=== PATIENT | male | born 1945 | race Caucasian/White ===

== ENCOUNTER 2021-07-02 18:03 | Inpatient (IN) | payer MEDICARE, OTHER ==
[~2021-07-02] VITALS: Ht 182.9 cm; Wt 70.3 kg
[2021-07-02] MEDS ORDERED: ALBUTEROL SULFATE 2.5 MG/3 ML NEBU NEB ONE (18:15)
[2021-07-02] MEDS ORDERED: methylPREDNISolone SOD SUCC 125 MG/2 ML VIAL IV ONE (18:15)
[2021-07-02] MEDS ORDERED: IV NORMAL SALINE 1000 ML BAG IV ONE (18:15)
--- NOTE | 2021-07-02 18:22 | NUR ---
PT CAN NOT REMEMBER HIS HOME MEDICATION NAMES AND DOSAGES. HIS RELATIVES ARE GOING TO BRING MEDICATION LIST LATER.
[2021-07-02] MEDS ORDERED: ALBUTEROL SULFATE 2.5 MG/3 ML NEBU ONE (18:26)
[2021-07-02] MEDS ORDERED: methylPREDNISolone SOD SUCC 125 MG/2 ML VIAL ONE (18:37)
[2021-07-02 19:01] LABS: HEMATOCRIT 31.9 % (36.7-47.1); MEAN CORPUSCULAR VOLUME 87.4 fL (73.0-96.2); PLATELET COUNT (AUTO) 372 K/uL (152-348)
[2021-07-02 19:21] LABS: ALANINE AMINOTRANSFERASE 40 U/L (16-63); ALKALINE PHOSPHATASE 92 U/L (50-136); ASPARTATE AMINOTRANSFERASE 17 U/L (15-37); BILIRUBIN,TOTAL 0.4 mg/dL (0.2-1.0); CARBON DIOXIDE 23 mmol/L (21-32); CHLORIDE 95 mmol/L (98-107); CREATININE 2.8 mg/dL (0.6-1.3); POTASSIUM 4.7 mmol/L (3.5-5.1); TOTAL PROTEIN, SERUM 7.5 g/dL (6.4-8.2)
--- NOTE | 2021-07-02 19:24 | NUR ---
Patient states he does not want prednisone because it makes his blodd sugar go to the 600's. I notified Dr Park and Solu medrol was cancelled
[2021-07-02 19:28] LABS: BILIRUBIN,DIRECT 0.1 mg/dL (0.0-0.2)
[2021-07-02 19:29] LABS: GLUCOSE 380 mg/dL (74-106); UREA NITROGEN, BLOOD 106 mg/dL (7-18)
[2021-07-02] MEDS ORDERED: MIDAZOLAM HCL 2 MG/2 ML VIAL IV ONE (20:15)
[2021-07-02] MEDS ORDERED: FENTANYL CITRATE 100 MCG/2 ML AMPUL IV ONE (20:15)
[2021-07-02] MEDS ORDERED: MIDAZOLAM HCL 5 MG/ML VIAL ONE (20:52)
[2021-07-02] MEDS ORDERED: FENTANYL CITRATE 100 MCG/2 ML AMPUL ONE (20:53)
[2021-07-02] MEDS ORDERED: LIDOCAINE HCL 1% 20 ML VIAL ONE (22:50)
--- NOTE | 2021-07-02 23:00 | NUR ---
Patient consented for chest tube insertion by Dr. Park. , RN, & RT Cameron at bedside. Patient was medicated with 50mcg fentanyl IV. First attempt at chest tube insertion w/ Alvin-Close unsuccessful by MD. Willam Nguyen looking for another TruClose chest tube. in the meantime, dressing placed on incision. patient vitals are stable.
--- NOTE | 2021-07-03 00:14 | NUR ---
ARIADNA BAE, JACOB MCCANN.
--- NOTE | 2021-07-03 00:15 | NUR ---
Patient was transferred to Room 2A. Patient consented for chest tube insertion again with TruClose. patient was given 25mcg fentanyl at 2354. , RN, & RT Cameron at bedside. xray was done for post chest tube insertion. pending results.
--- NOTE | 2021-07-03 00:20 | NUR ---
Pt. admitted to Telemetry, under care of Desiree De La Torre. Dx: Pneumothorax Belongs List completed
[2021-07-03] MEDS ORDERED: ACETAMINOPHEN 325 MG TABLET PO PRN ×2 (00:30→08:45)
[2021-07-03] MEDS ORDERED: CEFTRIAXONE 1 G in IV DEXTROSE 5% 50 ML IV ONE (00:30)
[2021-07-03] MEDS ORDERED: AZITHROMYCIN IV 500 MG in IV DEXTROSE 5% 250 ML IV ONE (00:30)
[2021-07-03] MEDS ORDERED: MAGNESIUM HYDROXIDE 30 ML LIQUID UDC PO PRN (00:30)
[2021-07-03] MEDS ORDERED: Z GUARD REMEDY PASTE 57 GM TUBE TOP PRN (00:30)
[2021-07-03] MEDS ORDERED: CEFTRIAXONE /D5W 50ML IVPB **ER PYXIS IV ONE (00:44)
[2021-07-03] MEDS ORDERED: FENTANYL CITRATE 100 MCG/2 ML AMPUL IV ONE ×5 (00:45→06:15)
--- NOTE | 2021-07-03 00:50 | NUR ---
Patient to have repeat chest xray per Dr. Park in 45 min
[2021-07-03] MEDS ORDERED: AZITHROMYCIN 500MG/ D5W 250ML IVPB **ER PYXIS ONLY IV ONE (01:13)
--- NOTE | 2021-07-03 02:41 | NUR ---
Patient went down to radiology dept for CT scan. hold off transfer to inpatient unit at this time per Dr. Park.
--- NOTE | 2021-07-03 03:45 | NUR ---
per Dr. Park, CT results came back. & patient will need chest tube insertion again w/water seal. patient consented. vitals are stable.
[2021-07-03] MEDS ORDERED: MIDAZOLAM HCL 2 MG/2 ML VIAL IV ONE ×2 (04:00→06:00)
[2021-07-03] MEDS ORDERED: MIDAZOLAM HCL 5 MG/ML VIAL ONE (04:47)
[2021-07-03] MEDS ORDERED: FENTANYL CITRATE 100 MCG/2 ML AMPUL ONE (04:47)
[2021-07-03] MEDS ORDERED: methylPREDNISolone SOD SUCC 40 MG/ML VIAL IV SCH ×2 (06:00→14:00)
--- NOTE | 2021-07-03 06:07 | NUR ---
chest tube inserted by Dr. Park. patient tolerating well. vitals are stable. chest xray done again
--- NOTE | 2021-07-03 06:21 | NUR ---
Dr. Park spoke with [facility] regarding patient update. Patient to be admitted to [facility]. Called Dr. Tabares (on-call thoracic surgeon) on [phone] Park request pending call back.
--- NOTE | 2021-07-03 06:33 | NUR ---
CALLED [facility]OR[facility] OFFICE AT [phone], NO ONE ANSWERED. LEFT VOICE MESSAGE.
--- NOTE | 2021-07-03 06:34 | NUR ---
Per house sup. report to be given after change of shift
--- NOTE | 2021-07-03 06:44 | NUR ---
[facility] THORACIC SURGEON CALLED BACK
--- NOTE | 2021-07-03 07:03 | NUR ---
Desiree De La Torre called. Stated that she s/w Dr Tabares/Cardiothoracic surgeon who is unable to follow patient today. Instead she paged/left vm for Dr Santana/IR. Instructed to ask Nursing Sup for assistance in contacting AM IR team. S/w nursing monomer recovery supervisor and relayed message.
--- NOTE | 2021-07-03 07:29 | NUR ---
Paged Dr Lilly and connected call to Dr. Park.
[2021-07-03] MEDS ORDERED: MORPHINE SULFATE 2 MG/1 ML DISP.SYRIN ONE (07:36)
[2021-07-03] MEDS ORDERED: MORPHINE SULFATE 2 MG/1 ML DISP.SYRIN IV ONE ×2 (07:45→08:15)
--- NOTE | 2021-07-03 08:11 | NUR ---
VSS. Pt states feeling more comfortable after pain medication. No adverse event. Pt is alert and responsive.
--- NOTE | 2021-07-03 08:23 | NUR ---
Deleted duplicate order for Morphine 2mg IV.
[2021-07-03] MEDS: BLOOD SUGAR DIAGNOSTIC 1 EACH STRIP VI SCH ×4 (08:32→21:06)
[2021-07-03] MEDS ORDERED: DEXTROSE 50% 50 ML DISP.SYRIN IV PRN (08:45)
[2021-07-03] MEDS ORDERED: NORMAL SALINE IV ONE ×2 (08:45→09:00)
[2021-07-03] MEDS ORDERED: ONDANSETRON 4 MG/2 ML VIAL IV PRN ×2 (08:45→10:00)
[2021-07-03] MEDS ORDERED: INSULIN REGULAR, HUMAN 300 UNIT/3 ML VIAL IV ONE (08:45)
[2021-07-03] MEDS ORDERED: INSULIN REGULAR IV ONE ×2 (08:45→09:00)
[2021-07-03] MEDS ORDERED: HUMAN IV ONE ×2 (08:45→09:00)
[2021-07-03] MEDS ORDERED: INSULIN REGULAR, HUMAN 300 UNIT/3 ML VIAL ONE (08:47)
--- NOTE | 2021-07-03 08:48 | NUR ---
Report given to ADRIANNA Frazier. Pt will be transfered to 3rd floor [facility].
[2021-07-03 09:18] LABS: ALANINE AMINOTRANSFERASE 34 U/L (16-63); ALKALINE PHOSPHATASE 75 U/L (50-136); ASPARTATE AMINOTRANSFERASE 14 U/L (15-37); BILIRUBIN,TOTAL 0.3 mg/dL (0.2-1.0); CARBON DIOXIDE 25 mmol/L (21-32); CHLORIDE 102 mmol/L (98-107); CREATININE 2.5 mg/dL (0.6-1.3); POTASSIUM 4.7 mmol/L (3.5-5.1); TOTAL PROTEIN, SERUM 6.8 g/dL (6.4-8.2)
[2021-07-03 09:20] LABS: HEMATOCRIT 27.8 % (36.7-47.1); MEAN CORPUSCULAR HEMOGLOBIN 29.5 uug (23.8-33.4); MEAN CORPUSCULAR VOLUME 87.5 fL (73.0-96.2); PLATELET COUNT (AUTO) 350 K/uL (152-348)
--- NOTE | 2021-07-03 09:20 | NUR ---
Pt transported to 3rd floor via gurney in stable condition accompanied by RT. Hand-off at bedside to Freddie.
--- NOTE | 2021-07-03 09:30 | NUR ---
Received this 76 yo male from ER per ellis with the chief complaint of shortness of breath, diagnosis of pneumothorax. Transferred to bed comfortably. O2 at 3L/NC with o2 sat of 87%. Chest tube intact with bloody drainage, attached to suction but no bubbling noted. Seen and examined and checked chest tube by Dr. Lilly. Scheduled for CT guided thoracentesis, pigtail insertion, consent signed. Placed on NPO.
[2021-07-03 09:32] LABS: GLUCOSE 387 mg/dL (74-106); UREA NITROGEN, BLOOD 91 mg/dL (7-18)
[2021-07-03] MEDS ORDERED: levoFLOXacin 500 MG/D5W 500 MG in PREMIXED 1 EACH IV ONE (11:00)
[2021-07-03] MEDS: ALBUTEROL SULFATE 2.5 MG/3 ML NEBU NEB SCH ×3 (11:44→20:01)
[2021-07-03] MEDS: IPRATROPIUM BROMIDE 0.5 MG/2.5 ML NEBU NEB SCH ×3 (11:44→20:01)
[2021-07-03] MEDS ORDERED: NALOXONE 2 MG/2 ML SYRINGE IV PRN (11:45)
[2021-07-03] MEDS ORDERED: FENTANYL CITRATE 250 MCG/5 ML AMPUL IV PRN (11:45)
[2021-07-03] MEDS ORDERED: MIDAZOLAM HCL 10 MG/2 ML VIAL IV PRN (11:45)
[2021-07-03] MEDS: PANTOPRAZOLE SODIUM 40 MG VIAL IV SCH (11:48)
[2021-07-03] MEDS: MORPHINE SULFATE 2 MG/1 ML DISP.SYRIN IV PRN (11:49)
[2021-07-03] MEDS: INSULIN REGULAR, HUMAN 300 UNIT/3 ML VIAL SQ PRN ×2 (11:50→17:06)
[2021-07-03 12:00] VITALS: BP 124/47
[2021-07-03 13:54] LABS: CHOLESTEROL 123 mg/dL (<200); HDL CHOLESTEROL 38 mg/dL (40-60); TRIGLYCERIDES 132 MG/DL (30-150)
--- NOTE | 2021-07-03 15:00 | NUR ---
To radiology by bed for CT guided thoracentesis, possible pigtail insertion.
[2021-07-03] MEDS ORDERED: LIDOCAINE HCL 1% 20 ML VIAL ONE (15:03)
[2021-07-03 15:16] LABS: THYROID STIMULATING HORMONE 1.764 mIU/mL (0.358-3.740)
[2021-07-03 16:00] VITALS: BP 103/48
--- NOTE | 2021-07-03 16:33 | NUR ---
Back from interventional radiology, Pigtail insertion done to right mid back with 140 ml of serosanguinous drainage. Previous chest tube intact, attached back to suction. Called to Dr. Lilly to clarify pigtail set up
--- NOTE | 2021-07-03 18:34 | NUR ---
Chest tube/pigtail to suction at 20 cm water. O2 at 2L/NC with O2 sat of 99%. On moderate high back rest, not in distress.
[2021-07-03 20:05] VITALS: BP 112/47
[2021-07-03] MEDS: BUDESONIDE 0.5 MG/2 ML NEBU NEB SCH (20:07)
[2021-07-03] MEDS: ZOLPIDEM 5 MG TABLET PO PRN (23:42)
[2021-07-04] VITALS: BP 116/53
[2021-07-04 04:00] VITALS: BP 127/52
[2021-07-04] MEDS: BLOOD SUGAR DIAGNOSTIC 1 EACH STRIP VI SCH ×4 (06:26→23:01)
--- NOTE | 2021-07-04 06:39 | NUR ---
END OF SHIFT REPORT Patient fairly rested well; tolerated Chest tubes; Chest tube/pigtail to suction at 20 cm water. O2 at 2L/NC with O2 sat of 99%. kept HOB; no distress noted; assisted to meet hygiene needs; pigtail output appr 20 ml and in tube; 80 ml sero-sanguinous output from main chest tube; continue to monitor; continue plan of care.l
[2021-07-04] MEDS: BUDESONIDE 0.5 MG/2 ML NEBU NEB SCH ×2 (07:40→21:49)
[2021-07-04] MEDS: ALBUTEROL SULFATE 2.5 MG/3 ML NEBU NEB SCH ×4 (07:40→21:49)
[2021-07-04] MEDS: IPRATROPIUM BROMIDE 0.5 MG/2.5 ML NEBU NEB SCH ×4 (07:40→21:48)
[2021-07-04 07:54] LABS: ABG BASE EXCESS -1.6 mmol/L; ABG HCO3 22.2 mmol/L; ABG PCO2 33.7 mmHg (35.0-45.0); ABG PH 7.436 (7.350-7.450); ABG PO2 87.9 mmHg (75.0-100.0); ABG SITE RIGHT BRACHIAL; ABG TOTAL HEMOGLOBIN 9.5 G/dL (13.5-18.0); COHb 0.1 % (0.5-1.5); MetHb 0.1 % (0.0-1.5); O2Hb 96.7 % (94.0-97.0); VENT MODE Nasal Cannula
[2021-07-04 08:00] VITALS: BP 124/52
[2021-07-04] MEDS: PANTOPRAZOLE SODIUM 40 MG VIAL IV SCH (09:02)
[2021-07-04 09:19] LABS: HEMATOCRIT 24.1 % (36.7-47.1); MEAN CORPUSCULAR HEMOGLOBIN 29.9 uug (23.8-33.4); MEAN CORPUSCULAR VOLUME 87.5 fL (73.0-96.2); PLATELET COUNT (AUTO) 318 K/uL (152-348)
[2021-07-04 09:24] LABS: CARBON DIOXIDE 22 mmol/L (21-32); CHLORIDE 99 mmol/L (98-107); CREATININE 2.3 mg/dL (0.6-1.3); MAGNESIUM 1.7 mg/dL (1.8-2.4); POTASSIUM 4.2 mmol/L (3.5-5.1)
[2021-07-04 10:23] LABS: IRON, SERUM 21 ug/dL (50-175)
[2021-07-04 11:05] LABS: GLUCOSE 378 mg/dL (74-106); UREA NITROGEN, BLOOD 81 mg/dL (7-18)
[2021-07-04 12:00] VITALS: BP 117/54
[2021-07-04] MEDS: levoFLOXacin 250MG /D5W 50 ML IV SCH (12:37)
[2021-07-04] MEDS: INSULIN REGULAR, HUMAN 300 UNIT/3 ML VIAL SQ PRN ×2 (12:43→17:10)
[2021-07-04 16:00] VITALS: BP 104/46
[2021-07-05] VITALS: BP 134/62
[2021-07-05 04:00] VITALS: BP 128/60
[2021-07-05] MEDS: BLOOD SUGAR DIAGNOSTIC 1 EACH STRIP VI SCH ×4 (06:37→20:37)
[2021-07-05 07:44] LABS: HEMATOCRIT 26.3 % (36.7-47.1); MEAN CORPUSCULAR HEMOGLOBIN 29.9 uug (23.8-33.4); MEAN CORPUSCULAR VOLUME 87.4 fL (73.0-96.2); PLATELET COUNT (AUTO) 364 K/uL (152-348)
[2021-07-05] MEDS: PANTOPRAZOLE SODIUM 40 MG VIAL IV SCH (08:00)
--- NOTE | 2021-07-05 08:00 | NUR ---
PATIENT SITTING UP IN BED ALERT AND ORIENTED X3 NO SS OF PAIN OR DISTRESS SATURATING 98% 3L NC. STILL NOTED AIR LEAK RIGHT CHEST TUBE, PIG NANY;L TUBE FUNCTIONING WELL. SR ON MONITOR
[2021-07-05] MEDS: INSULIN REGULAR, HUMAN 300 UNIT/3 ML VIAL SQ PRN ×3 (08:03→16:24)
[2021-07-05 08:05] LABS: CARBON DIOXIDE 24 mmol/L (21-32); CHLORIDE 101 mmol/L (98-107); CREATININE 2.2 mg/dL (0.6-1.3); GLUCOSE 198 mg/dL (74-106); MAGNESIUM 2.1 mg/dL (1.8-2.4); PHOSPHOROUS 4.1 mg/dL (2.5-4.9); POTASSIUM 4.6 mmol/L (3.5-5.1); UREA NITROGEN, BLOOD 73 mg/dL (7-18)
[2021-07-05 08:30] VITALS: BP 119/71
[2021-07-05] MEDS: ALBUTEROL SULFATE 2.5 MG/3 ML NEBU NEB SCH ×4 (08:38→20:18)
[2021-07-05] MEDS: BUDESONIDE 0.5 MG/2 ML NEBU NEB SCH ×2 (08:38→20:17)
[2021-07-05] MEDS: IPRATROPIUM BROMIDE 0.5 MG/2.5 ML NEBU NEB SCH ×4 (08:38→20:17)
--- NOTE | 2021-07-05 09:30 | NUR ---
SEEN BY DR ACHARYA SEE NOTES
--- NOTE | 2021-07-05 10:28 | NUR ---
BOTH CHEST TUBE CHANGED TO WATER SEAL DRAINAGE AND OBSERVE
[2021-07-05] MEDS: MORPHINE SULFATE 2 MG/1 ML DISP.SYRIN IV PRN ×2 (11:29→21:14)
[2021-07-05] MEDS: levoFLOXacin 250MG /D5W 50 ML IV SCH (11:29)
[2021-07-05 12:00] VITALS: BP 141/56
[2021-07-05 16:00] VITALS: BP 126/57
[2021-07-05 20:14] VITALS: BP 147/54
[2021-07-05] MEDS: INSULIN REGULAR, HUMAN 300 UNITS/3 ML VIAL SQ PRN (20:36)
[2021-07-06 00:49] VITALS: BP 131/55
[2021-07-06 04:40] VITALS: BP 132/50
[2021-07-06] MEDS: PANTOPRAZOLE SODIUM 40 MG TABLET.DR PO SCH (06:47)
[2021-07-06] MEDS: BLOOD SUGAR DIAGNOSTIC 1 EACH STRIP VI SCH ×4 (06:49→20:40)
[2021-07-06 07:38] LABS: HEMATOCRIT 26.3 % (36.7-47.1); MEAN CORPUSCULAR HEMOGLOBIN 29.6 uug (23.8-33.4); MEAN CORPUSCULAR VOLUME 87.6 fL (73.0-96.2); PLATELET COUNT (AUTO) 405 K/uL (152-348)
[2021-07-06 07:53] LABS: CARBON DIOXIDE 24 mmol/L (21-32); CHLORIDE 103 mmol/L (98-107); CREATININE 1.8 mg/dL (0.6-1.3); GLUCOSE 198 mg/dL (74-106); MAGNESIUM 2.2 mg/dL (1.8-2.4); PHOSPHOROUS 3.5 mg/dL (2.5-4.9); POTASSIUM 4.8 mmol/L (3.5-5.1); UREA NITROGEN, BLOOD 67 mg/dL (7-18)
[2021-07-06] MEDS: ALBUTEROL SULFATE 2.5 MG/3 ML NEBU NEB SCH ×4 (07:53→20:43)
[2021-07-06] MEDS: IPRATROPIUM BROMIDE 0.5 MG/2.5 ML NEBU NEB SCH ×4 (07:53→20:42)
[2021-07-06] MEDS: BUDESONIDE 0.5 MG/2 ML NEBU NEB SCH ×2 (07:53→20:43)
[2021-07-06] MEDS: MORPHINE SULFATE 2 MG/1 ML DISP.SYRIN IV PRN ×3 (07:58→13:39)
[2021-07-06] MEDS: INSULIN REGULAR, HUMAN 300 UNIT/3 ML VIAL SQ PRN ×3 (08:00→16:19)
--- NOTE | 2021-07-06 08:03 | NUR ---
PATIENT COMPLAINED OF PAIN ON THE RIGHT SIDE OVER THE INSERTION SITE OF CHEST TUBE 02/25. SATURATION IS 99% ON 3L NC. RESPIRATORY RATE OF 22. BP OF 134/56. MORPHINE IV GIVEN ORDERED. OBSERVED SINUS RYTHM ON MONITOR.
[2021-07-06 08:11] VITALS: BP 134/56
--- NOTE | 2021-07-06 09:00 | NUR ---
SEEN BY DR. ACHARYA FOR PULMONARY FOLLOW UP WITH ORDER TO CLAMP BOTH CHEST TUBES AND TO RESUME PRN.
--- NOTE | 2021-07-06 10:00 | NUR ---
PATIENT TOLERATING CLAMPING OF BOTH CHEST TUBES. SATURATING 100% ON 2 LITERS NASAL CANULA OF OXYGEN, NO SIGNS OF DISTRESS. SINUS RYTHM AT 83 ON MONITOR.
[2021-07-06] MEDS: levoFLOXacin 250MG /D5W 50 ML IV SCH (10:11)
[2021-07-06 11:53] VITALS: BP 130/50
[2021-07-06] MEDS: GLUCERNA SHAKE VANILLA 237 ML CAN PO SCH ×2 (12:39→17:00)
[2021-07-06] MEDS: MULTIVIT, IRON, MIN NO. 8, FA TABLET PO SCH (12:39)
--- NOTE | 2021-07-06 13:00 | NUR ---
PATIENT RESTING COMFORTABLY WITH MORPHINE PRN, NO SIGNS OF RESPIRATORY DISTRESS SATURATING 100% ON 2L. TOLERATED CLAMPING OF CHEST TUBE.
--- NOTE | 2021-07-06 14:50 | NUR ---
TRIED TO REACH DR ACHARYA TO VERIFY REGARDING AM CXR RESULTS AND SAID HE IS AWARE AND THAT CONTINUE TO OBSERVE AND CONTINUE CLAMPING OF CHEST TUBE ORDERED
[2021-07-06 15:36] VITALS: BP 138/55
--- NOTE | 2021-07-06 16:31 | NUR ---
DR. IBRAHIM CAME IN NOTED THE RESULTS OF THE CHEST XRAY TODAY, AND REMOVED THE CHEST TUBE #1 AND PLACED VASELINIZED GAUZE OF THE CHEST TUBE SITE. PATIENT TOLERATING WELL. CONTINUED TO SATURATE 100% ON 2L NASAL CANULA. NO SIGN OF BLEEDING OVER THE SITE.
--- NOTE | 2021-07-06 19:55 | NUR ---
pt refused Milk of Magnesia when offered for constipation
[2021-07-06 20:00] VITALS: BP 121/49
[2021-07-06] MEDS: INSULIN REGULAR, HUMAN 300 UNITS/3 ML VIAL SQ PRN (20:40)
[2021-07-07 00:21] VITALS: BP 139/52
[2021-07-07 04:00] VITALS: BP 96/66
[2021-07-07] MEDS: PANTOPRAZOLE SODIUM 40 MG TABLET.DR PO SCH (06:47)
[2021-07-07] MEDS: BLOOD SUGAR DIAGNOSTIC 1 EACH STRIP VI SCH ×4 (06:55→20:51)
[2021-07-07] MEDS: ALBUTEROL SULFATE 2.5 MG/3 ML NEBU NEB SCH ×4 (07:36→18:55)
[2021-07-07] MEDS: IPRATROPIUM BROMIDE 0.5 MG/2.5 ML NEBU NEB SCH ×4 (07:36→18:55)
[2021-07-07] MEDS: BUDESONIDE 0.5 MG/2 ML NEBU NEB SCH ×2 (07:36→18:55)
[2021-07-07] MEDS: MULTIVIT, IRON, MIN NO. 8, FA TABLET PO SCH (07:51)
[2021-07-07] MEDS: INSULIN REGULAR, HUMAN 300 UNIT/3 ML VIAL SQ PRN ×4 (07:51→20:54)
[2021-07-07] MEDS: GLUCERNA SHAKE VANILLA 237 ML CAN PO SCH ×3 (07:52→17:32)
[2021-07-07 08:00] VITALS: BP 139/56
--- NOTE | 2021-07-07 08:00 | NUR ---
Pt is in no acute distress. Dressing reinforce on right chest tube insertion site covered with xeroform covered with dry guaze. Pigtail on posterior back chestube clamped. o2 sat 97%. No sob noted. Call light is within reach. Addendum: 07/08/21 at 0407 by AKOSUA LEMA RN wrong time
--- NOTE | 2021-07-07 08:54 | NUR ---
SEEN BY DR. ACHARYA, FOR PULMONARY FOLLOW UP. NOTED RESULTS OF TODAYS XRAY. WILL FOLLOWUP WITH ANOTHER CXR TOMORROW IN THE MORNING. PATIENT IS RESTING COMFORTABLE IN THE BED. NO SIGNS AND SYMPTOMS OF RESPIRATORY DISTRESS. DENIES PAIN. SR ON MONITOR. AFEBRILE.
[2021-07-07 11:11] VITALS: BP 122/80
[2021-07-07] MEDS: levoFLOXacin 250 MG TABLET PO SCH (11:18)
[2021-07-07 15:22] VITALS: BP 143/47
[2021-07-07] MEDS ORDERED: CLOP75TA15 PO (17:24)
[2021-07-07] MEDS ORDERED: INSU100V7 SQ (17:24)
[2021-07-07] MEDS ORDERED: MULT-24 PO (17:24)
[2021-07-07] MEDS ORDERED: MULT-1045 PO (17:24)
[2021-07-07] MEDS ORDERED: EZET10TA15 PO (17:24)
[2021-07-07] MEDS ORDERED: INSU300I3 SQ (17:24)
[2021-07-07] MEDS ORDERED: DILT360C28 PO (17:24)
[2021-07-07] MEDS ORDERED: ERGO500040 PO (17:24)
[2021-07-07] MEDS ORDERED: ROSU10TA2 PO (17:24)
[2021-07-07] MEDS ORDERED: AMLO10TA59 PO (17:24)
[2021-07-07] MEDS ORDERED: METO2.5T2 PO (17:24)
[2021-07-07] MEDS ORDERED: ZOLP5TAB2 PO (17:24)
[2021-07-07] MEDS ORDERED: BUDE0.5A4 IH (17:24)
[2021-07-07] MEDS ORDERED: LISI20TA30 PO (17:24)
[2021-07-07] MEDS ORDERED: BUME1TAB8 PO (17:26)
[2021-07-07] MEDS ORDERED: DORZ10DR10 EACHEYE (17:26)
--- NOTE | 2021-07-07 20:00 | NUR ---
Pt is in no acute distress. Dressing reinforce on right chest tube insertion site covered with xeroform covered with dry gauze. Pigtail on posterior back chest tube clamped. o2 sat 97%. No sob noted. Call light is within reach.
[2021-07-07 20:44] VITALS: BP 138/56
--- NOTE | 2021-07-07 23:45 | NUR ---
Notified Dr Hawkins that pt's home medications are entered. Finally got faxed from [facility] earlier. Notified dr Tirado Meds needs to be reconciled.
[2021-07-08] MEDS: ZOLPIDEM 5 MG TABLET PO PRN ×2 (01:17→22:28)
--- NOTE | 2021-07-08 03:00 | NUR ---
Marco A effective pt sleeping comfortably in bed.
[2021-07-08 04:31] VITALS: BP 144/60
[2021-07-08] MEDS: PANTOPRAZOLE SODIUM 40 MG TABLET.DR PO SCH (06:38)
[2021-07-08] MEDS: BLOOD SUGAR DIAGNOSTIC 1 EACH STRIP VI SCH ×4 (07:50→20:33)
[2021-07-08 08:00] VITALS: BP 136/60
[2021-07-08] MEDS: BUDESONIDE 0.5 MG/2 ML NEBU NEB SCH ×2 (08:03→19:06)
[2021-07-08] MEDS: ALBUTEROL SULFATE 2.5 MG/3 ML NEBU NEB SCH ×4 (08:03→19:02)
[2021-07-08] MEDS: IPRATROPIUM BROMIDE 0.5 MG/2.5 ML NEBU NEB SCH ×4 (08:03→19:02)
[2021-07-08] MEDS: INSULIN REGULAR, HUMAN 300 UNIT/3 ML VIAL SQ PRN ×3 (08:04→16:38)
[2021-07-08] MEDS: MULTIVIT, IRON, MIN NO. 8, FA TABLET PO SCH (08:06)
[2021-07-08] MEDS: GLUCERNA SHAKE VANILLA 237 ML CAN PO SCH ×3 (08:09→17:34)
--- NOTE | 2021-07-08 09:00 | NUR ---
seen by Dr Lilly, final report of CXR not in yet and says if no pneumothorax it's ok with him to remove it
[2021-07-08] MEDS: levoFLOXacin 250 MG TABLET PO SCH (11:23)
[2021-07-08 11:35] VITALS: BP 141/43
--- NOTE | 2021-07-08 13:30 | NUR ---
cxr final report faxed to unit and showed to A. Bryant- chest tube to be removed today by Dr Tovar IR. Dr Lilly and Dr Campuzano informed of CXR results and plan for Chest tube removal
--- NOTE | 2021-07-08 14:00 | NUR ---
pt informed that chest tube will be removed by IR
[2021-07-08 16:00] VITALS: BP 133/62
--- NOTE | 2021-07-08 16:00 | NUR ---
Patient was seen by Dr. Bowie to remove the chest tube. After removal, site was cleaned and dressed with vaselinized dressing and gauze. Patient tolerated removal. O2 saturation is 99% on 2L NC. No pain. CXR was performed at 1620. Awaiting results.
--- NOTE | 2021-07-08 18:47 | NUR ---
pt states feeling better, informed of PT eval in am, remains on 1l/nc at 99%, all needs attended and met, call light within reach
[2021-07-08 20:00] VITALS: BP 147/57
[2021-07-08] MEDS: INSULIN REGULAR, HUMAN 300 UNITS/3 ML VIAL SQ PRN (20:34)
[2021-07-08 20:39] VITALS: BP 147/57
[2021-07-09 05:54] VITALS: BP 133/49
[2021-07-09 06:00] VITALS: BP 133/49
[2021-07-09] MEDS: PANTOPRAZOLE SODIUM 40 MG TABLET.DR PO SCH (06:17)
--- NOTE | 2021-07-09 06:26 | NUR ---
Patient AAOx4. In no acute distress. Denies any pain or SOB. O2 sat at 97% on RA. Midline on left upper arm intact and patent. NSR on tele with hr of 81/min. Dressing on right side of back and right rib cage area clean, dry and intact. Needs attended to and met. Safety measure maintained and call light within reached.
[2021-07-09] MEDS: BLOOD SUGAR DIAGNOSTIC 1 EACH STRIP VI SCH ×2 (06:35→11:32)
[2021-07-09 07:47] LABS: MEAN CORPUSCULAR HEMOGLOBIN 29.7 uug (23.8-33.4); MEAN CORPUSCULAR VOLUME 88.2 fL (73.0-96.2); PLATELET COUNT (AUTO) 443 K/uL (152-348)
[2021-07-09 07:58] LABS: ALANINE AMINOTRANSFERASE 25 U/L (16-63); ALKALINE PHOSPHATASE 67 U/L (50-136); ASPARTATE AMINOTRANSFERASE 15 U/L (15-37); BILIRUBIN,TOTAL 0.4 mg/dL (0.2-1.0); CARBON DIOXIDE 27 mmol/L (21-32); CHLORIDE 102 mmol/L (98-107); CREATININE 1.6 mg/dL (0.6-1.3); PHOSPHOROUS 3.5 mg/dL (2.5-4.9); POTASSIUM 4.9 mmol/L (3.5-5.1); TOTAL PROTEIN, SERUM 6.9 g/dL (6.4-8.2); UREA NITROGEN, BLOOD 46 mg/dL (7-18)
[2021-07-09 08:00] VITALS: BP 111/66
--- NOTE | 2021-07-09 08:00 | NUR ---
received patient laying in bed in no apparent distress. patient is alert and oriented x4 and able to make needs known. patient states " i have a pain to left side of the chest, patient states pain 4/10, constant, does not radiate, tabatha made aware. patient with v/s wnl at this time. patient s/p chest tube removal, currently on r.a with spo2 95%, rr even and non-labored, no c.o sob. reminded to use call light for assistance. will monitor. l
[2021-07-09 08:02] LABS: GLUCOSE 338 mg/dL (74-106)
[2021-07-09] MEDS: BUDESONIDE 0.5 MG/2 ML NEBU NEB SCH (08:15)
[2021-07-09] MEDS: ALBUTEROL SULFATE 2.5 MG/3 ML NEBU NEB SCH ×3 (08:15→15:30)
[2021-07-09] MEDS: IPRATROPIUM BROMIDE 0.5 MG/2.5 ML NEBU NEB SCH ×3 (08:15→15:30)
[2021-07-09] MEDS: MULTIVIT, IRON, MIN NO. 8, FA TABLET PO SCH (08:17)
[2021-07-09] MEDS: INSULIN REGULAR, HUMAN 300 UNIT/3 ML VIAL SQ PRN ×2 (08:23→11:36)
[2021-07-09] MEDS: GLUCERNA SHAKE VANILLA 237 ML CAN PO SCH ×2 (09:14→12:35)
--- NOTE | 2021-07-09 10:11 | NUR ---
new order for stat cxr for dx chest pain from Bryant, noted and carried out.
[2021-07-09] MEDS: levoFLOXacin 250 MG TABLET PO SCH (11:28)
[2021-07-09 12:00] VITALS: BP 146/51
[2021-07-09] MEDS ORDERED: LEVO250T59 PO (15:10)
[2021-07-09 16:00] VITALS: BP 146/57
--- NOTE | 2021-07-09 16:14 | NUR ---
new discharge orders in place, reviewed discharge orders with patient. reminded patient to "Followup with PCP within 1 week, Continue Levaquin 250mg PO QD x4 more days to complete antibiotic regimen, Resume his normal Trelegy at discharge., Continue home medications, Seek immediate medical attention for worsening symptoms, chest pain,, shortness of breath, palpitations, abdominal pain distention, intractable, nausea and vomiting, diarrhea, hematochezia, melena, weakness, loss of, consciousness, neurological deficit, or any other emergent concerns." patient states understanding. per patient my daughter can pick me up after 5. all paperwork signed by patient. inventory list completed and signed.
--- NOTE | 2021-07-09 17:15 | NUR ---
midline removed, minimal bleeding noted, pressure applied and dressing applied. DTR at bed side
--- NOTE | 2021-07-09 17:20 | NUR ---
patient assisted downstairs via wheelchair. upon discharge patient with v/s wnl, no c/o sob. rr even and non-labored, no c/o sob. patients gait is stable. patient assisted onto vehicle safely. no belongings left in room.
== END 2021-07-09 17:20 | disposition home health service (06) | DRG 199 ==
LOC: ER 18:03 → DOU3 07-03 08:50 → TELE-TD3 07-03 09:21
PROVIDERS: ADMIT Internal Medicine; ATTEND Hospitalist
PROC: 0W9930Z Drainage of Right Pleural Cavity with Drainage Device, Percutaneous Approach (ICD-10-PCS; principal; 2021-07-03)
PROC: 0W9930Z Drainage of Right Pleural Cavity with Drainage Device, Percutaneous Approach (ICD-10-PCS; 2021-07-03)
PROC: 05H633Z Insertion of Infusion Device into Left Subclavian Vein, Percutaneous Approach (ICD-10-PCS; 2021-07-06)
PROC: B547ZZA Ultrasonography of Left Subclavian Vein, Guidance (ICD-10-PCS; 2021-07-06)
PROC: 0WP9X0Z Removal of Drainage Device from Right Pleural Cavity, External Approach (ICD-10-PCS; 2021-07-06)
DX: J93.83 Other pneumothorax (principal); N17.0 Acute kidney failure with tubular necrosis; J18.9 Pneumonia, unspecified organism; I50.31 Acute diastolic (congestive) heart failure; J96.01 Acute respiratory failure with hypoxia; J94.2 Hemothorax; E44.1 Mild protein-calorie malnutrition; I13.0 Hypertensive heart and chronic kidney disease with heart failure and stage 1 through stage 4 chronic kidney disease, or unspecified chronic kidney disease; J44.0 Chronic obstructive pulmonary disease with (acute) lower respiratory infection; J44.9 Chronic obstructive pulmonary disease, unspecified; D63.8 Anemia in other chronic diseases classified elsewhere; E11.65 Type 2 diabetes mellitus with hyperglycemia; E78.5 Hyperlipidemia, unspecified; E83.42 Hypomagnesemia; Z80.6 Family history of leukemia; Z20.822 Contact with and (suspected) exposure to COVID-19; Z87.01 Personal history of pneumonia (recurrent); N18.9 Chronic kidney disease, unspecified; N40.0 Benign prostatic hyperplasia without lower urinary tract symptoms; J93.82 Other air leak; Z87.891 Personal history of nicotine dependence; E11.22 Type 2 diabetes mellitus with diabetic chronic kidney disease; E88.09 Other disorders of plasma-protein metabolism, not elsewhere classified
CPT/HCPCS: 36415; 36600; 70030-TC; 71045; 71250; 83550; 83605; 83735; 84100; 84443; 85025; 85610; 85730; 87040; 87400; 93005; 93307; 94640; 94664; 94760; 97161; A4217; A4663; A6209; C9113; G0378; G0500; J0456; J0696; J1815; J1956; J2250; J2270; J2930; J3010; J3490; J3590; J7030; J7050